=== PATIENT | female | born 2000 | race Two or more races ===

== ENCOUNTER 2022-01-28 18:45 | Emergency (ER) | payer OTHER ==
[2022-01-28 19:12] VITALS: BP 106/72; PULSE 91; RESP 18; TEMP 98; BMI 25.2
[2022-01-28] MEDS ORDERED: IBUPROFEN 600 MG TABLET (FP) PO ONE ×2 (19:53→19:56)
[2022-01-28 20:07] LABS: HEMOGLOBIN 13.3 G/dL (10.7-15.3); MCH 32.3 pg (25.7-33.7); MEAN CELL VOLUME 89.7 fl (80-96); MEAN PLT VOLUME 6.9 fl (7.5-11.1); RBC 4.13 10^6/uL (3.60-5.2); RDW 13.3 % (11.6-15.6); WHITE BLOOD COUNT 10.4 10^3/uL (4.0-10.8)
[2022-01-28 20:24] LABS: ALBUMIN 4.1 g/dl (3.4-5.0); BILIRUBIN,TOTAL 0.8 mg/dl (0.2-1); CALCIUM 9.2 mg/dl (8.5-10); CREATININE 0.6 mg/dl (0.55-1.3); TOT PROT 7.3 g/dl (6.4-8.2)
[2022-01-28 20:57] LABS: PLATELET ESTIMATE ADEQUATE
== END 2022-01-28 21:03 | disposition home or self-care (01) ==
LOC: FER 18:45
DX: R35.0 Frequency of micturition (principal); R51.9 Headache, unspecified; R53.83 Other fatigue
CPT/HCPCS: 36415; 80053; 81003; 84703; 85025; 87086; 87186; 99283-25